=== PATIENT | female | born 1965 | race Caucasian/White ===

== ENCOUNTER 2016-11-05 20:01 | Inpatient (IN) | payer BC ==
--- NOTE | ~2016-11-05 | OP ---
Record Of Operation [facility] [address] [place]. [address] NAME: MARIA G NATION : 61 STATUS : ADM IN [facility]#: [id number] AGE: 51 ADM/REG DATE : 11/05/16 MR#: [id number] REPORT SERV DATE: 11/09/16 DICTATED BY: ANY COOPER III DATE: 11/08/16 REPORT STATUS : Draft TRANSCRIBED BY: MODL DATE: 11/08/16 DATE OF PROCEDURE: 11/08/2016 PREOPERATIVE DIAGNOSIS: Severe small bowel obstruction, chronic, refractory to nonoperative management, possibly secondary to radiation enteritis versus recurrent gynecologic malignancy. 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 PROCEDURE: Laparotomy, lysis of adhesions, small bowel resection with primary anastomosis. SURGEON: Any Cooper M.D. ANESTHESIA: General with intubation. COMPLICATIONS: None. ESTIMATED BLOOD LOSS: 10 mL. SPECIMENS: Distal ilium. DRAINS: [place] in subcutaneous tissue. LAP AND SPONGE COUNT: Correct x3. BRIEF HISTORY: This 51-year-old female with a history of progressive endometrial cancer, status post laparotomy with previous debulking of her malignancy and retroperitoneal lymphadenectomy, as well as pelvic radiation, presented with a small bowel obstruction. The patient has had nausea and vomiting, and symptoms are ongoing for approximately three months, associated with profound weight loss. Her workup showed evidence for small bowel obstruction. She was refractory to nonoperative management including NG suction and bowel rest. It was felt that laparotomy with possible bowel resection was indicated. This procedure, the risks, benefits, and alternatives, including but not limited to the risk for bleeding, infection, enterotomy, injury to any abdominal structure, recurrence of the obstruction, ileus, incisional hernia, dehiscence, anastomotic leak, resulting in peritonitis, sepsis, and , and unforeseen complications including deep venous thrombosis, pulmonary embolus, myocardial infarction, stroke, pneumonia, and , were fully and completely explained to the patient and family at length on several occasions prior to surgery. The fact that this was a major operation with risk for major morbidity and mortality was explained. The marked increased risk for complications secondary to her severe malnutrition, and secondary to her previous radiation therapy, which would increase the risk for wound complications and anastomotic leak greatly was explained. I explained that I was very concerned that this was secondary to radiation enteritis, therefore, the complications with bowel resection would be markedly increased in terms of anastomotic leak. This was all explained to the patient and her family. Their questions were answered. They understood the risks and agreed to surgery as planned. Record Of Operation [facility] [address] [facility] [place] [address] NAME: MARIA G NATION : 61 STATUS : ADM IN PAT#: [id number] AGE: 51 ADM/REG DATE : 11/05/16 MR#: [id number] REPORT SERV DATE: 11/09/16 DICTATED BY: ANY COOPER III DATE: 11/08/16 REPORT STATUS : Draft TRANSCRIBED BY: MODShannan DATE: 11/08/16 FINDINGS: The patient had evidence for severe radiation enteritis of the distal ileum. The small bowel was markedly thickened, edematous with an exudate and gnarled in a mass consistent with severe radiation enteritis. The proximal small bowel appeared to be less involved and we were able to salvage enough small bowel such that we felt the patient's nutritional status would be adequate. DESCRIPTION OF PROCEDURE: After being properly identified and after discussing the risks of surgery with the patient and family again in the preoperative area, she was taken to the operating room and placed in the supine position on the operating room table. General anesthesia was administered and she was intubated without difficulty. A Sutherland catheter was inserted. The abdomen was prepped and draped sterilely in the usual fashion. After an appropriate "time-out" per JCAHO standards, a midline incision was made beginning several centimeters above the umbilicus down to the pubis. The abdominal wall was markedly thickened and woody in nature consistent with a radiation damage. The incision was continued through the fascia. Hemostasis was controlled with cautery. The abdominal cavity was carefully entered. The abdomen was explored. The tfi-jc-qtqvieqe small bowel was massively dilated secondary to obstruction. There was a large amount of clear ascites in the abdominal cavity. The distal small bowel was as above. It was gnarled upon itself, fibrotic, extremely pale, thickened, and edematous, all consistent with severe radiation enteritis. There was no evidence for carcinomatosis or peritoneal implants or recurrence of her malignancy. Even the proximal small bowel appeared to be somewhat pale and involved, but not as diseased as the distal small bowel. We selected the small bowel which was clearly nonviable and which was clearly the point of obstruction. The small bowel was again thickened, edematous, and gnarled upon itself. The small bowel proximal to this was massively dilated. We selected a point for division of the small bowel proximally, at the proximal most point of severe involvement. A FARRAH stapler was used to divide the bowel at this point. We then selected a point distally to divide the bowel, distal to the most severely diseased bowel, and a FARRAH stapler was used to divide the bowel at this point. This division was about 6 to 8 cm proximal to the ileocecal valve. The mesentery to the involved portion of small bowel was then divided using Harmonic scalpel. This section of small bowel, several feet length, was removed and sent for permanent pathology. We then performed a olji-hw-kgkj anastomosis between the divided proximal and distal small bowel. This was performed by aligning the antimesenteric border of the small bowel with interrupted 3-0 silk sutures. A small opening was then made in the antimesenteric border of the small bowel proximally and distally and a FARRAH stapler placed through this and fired. A TA-60 stapler was used to close the staple defect. This staple line was oversewn with interrupted 3-0 silk sutures. The "crotch" of the anastomosis was secured with 3-0 silk sutures. Upon completion of this, the anastomosis was widely patent to palpation. It was not twisted or kinked in any way. It was not under any tension. The mesenteric defect was closed with a running 3-0 silk suture. Evicel glue was placed over the anastomosis to help prevent leakage. Omentum was then placed over this in a Talat patch-type fashion. The abdominal cavity was irrigated copiously with saline and hemostasis was assured. The fascia was then closed with a running looped #1 PDS suture. The subcutaneous tissue was closed Record Of Operation [address] [place]. [address] NAME: MARIA G NATION : 61 STATUS : ADM IN [facility]#: [id number] AGE: 51 ADM/REG DATE : 11/05/16 MR#: [id number] REPORT SERV DATE: 11/09/16 DICTATED BY: ANY COOPER III DATE: 11/08/16 REPORT STATUS : Draft TRANSCRIBED BY: MAGDALENE DATE: 11/08/16 with a running 3-0 chromic suture over a Karina drain which was brought through the inferior aspect of the incision. The skin was closed with a running subcuticular 4-0 Monocryl stitch. Dressings were applied. Anesthesia was reversed. The patient was taken to the recovery room in stable condition. She tolerated the procedure well. Her family was informed of results of surgery. I explained to the patient's family the findings at surgery and explained that I am concerned about the anastomosis, which is high risk due to the radiation damage and also concerned about the wound and wound healing because of the radiation damage to the abdominal wall. RHJelena/MAGDALENE Any Cooper III, M.D. / [id number] CC: MD Chavez Ludwig DO Munford Yates III, M.D.
--- NOTE | ~2016-11-05 | CN ---
Consultation Report [facility] [address] [place]. [address] NAME: MARIA G NATION : 61 STATUS : ADM IN [facility]#: [id number] AGE: 51 ADM/REG DATE : 11/05/16 MR#: [id number] REPORT SERV DATE: 11/08/16 DICTATED BY: ANY COOPER III DATE: 11/07/16 REPORT STATUS : Draft TRANSCRIBED BY: MODL DATE: 11/07/16 DATE OF CONSULTATION: 11/07/2016 REASON FOR CONSULT: 1. Small bowel obstruction. 2. Recommendation regarding surgical management. HISTORY OF PRESENT ILLNESS: We are asked to see this 51-year-old female in the hospital for the above reasons. The patient was admitted to the hospital emergently on 11/05/2016 with evidence for small bowel obstruction. The patient has a history of recurrent endometrial cancer. She is status post hysterectomy with pelvic and periaortic lymph node dissection in 2014, followed by laparotomy with resection of recurrent perirectal mass in March 2016. She has completed chemotherapy after initial surgery and recently completed pelvic radiation therapy in June of this year. The patient was doing well until August of this year when she developed recurrent episodes of nausea, vomiting, weight loss, and food intolerance. These symptoms have become progressively worse over the last two to three weeks. The patient has had evidence radiographically for small bowel obstruction possibly secondary to radiation enteritis. The patient was admitted emergently five days ago and started on TPN. She states she has not had a bowel movement since Saturday of this week. She complains of abdominal distention. This was associated with a 20-pound weight loss and inability to tolerate any solid or liquid foods. NG tube was placed and a large amount of material over one liter was removed from her stomach. Upper enteroscopy performed 11/05/2016 showed changes consistent with small bowel obstruction as has small bowel series on this admission. Initially 3.2 L of bilious material was removed from her stomach. Her current small bowel series shows small bowel dilatation to five centimeters. Yesterday, NG tube was placed and 1300 mL of fluid was removed from the stomach with 1.5 L of output every 12 hours since then. PAST MEDICAL HISTORY: History of endometrial cancer as above. ALLERGIES: SULFA, . MEDICATIONS: Aspirin, Lipitor, digoxin, Diflucan, folic acid, nystatin, Protonix, prednisone, and Rythmol. PAST SURGICAL HISTORY: Includes the above as well as breast augmentation. SOCIAL HISTORY: The patient is a speech pathologist. She is and lives locally. FAMILY HISTORY: Unremarkable. PHYSICAL EXAMINATION: GENERAL: This is a thin female, in no acute distress. She is alert and oriented x3. HEENT: Unremarkable. NEUROLOGIC: Cranial nerves II through XII are normal. Consultation Report [place] [address] [facility] [address] NAME: MARIA G NATION : 61 STATUS : ADM IN [facility]#: [id number] AGE: 51 ADM/REG DATE : 11/05/16 MR#: [id number] REPORT SERV DATE: 11/08/16 DICTATED BY: ANY COOPER III DATE: 11/07/16 REPORT STATUS : Draft TRANSCRIBED BY: MAGDALENE DATE: 11/07/16 LUNGS: Clear. CARDIAC: Normal. ABDOMEN: Soft, slightly distended, nontender. EXTREMITIES: Normal. LABORATORY DATA: Electrolytes are unremarkable. A small-bowel series and CT scan both showed changes consistent with small bowel obstruction. ASSESSMENT: 1. A 51-year-old female with persistent small bowel obstruction, which has persisted since August of this year, associated weight loss. 2. History of endometrial cancer with radiation therapy and surgical procedures as above. PLAN: I believe the patient has failed nonoperative management after 5 days of NG suction and bowel rest. I feel that laparotomy with possible bowel resection is indicated. The patient wishes to proceed with surgery tomorrow and wants the schedule to be done for her. This will be laparotomy with possible lysis of adhesions, possible bowel resection. This procedure, the risks, benefits, and alternatives, including not limited to the risk for bleeding, infection, enterotomy, injury to abdominal structure, postop small bowel obstruction, ileus, recurrent small bowel obstruction, anastomotic leak resulting in peritonitis, sepsis, and , and unforeseen complications including deep venous thrombosis, pulmonary embolus, myocardial infarction, stroke, pneumonia, and have been fully and clearly explained to the patient and family prior to surgery. The fact that this is a major operation with risk for major morbidity and mortality and no guarantee for relief of her symptoms were explained. The expected length of recovery has been explained. The fact that she is at marked increased risk for complications due to her previous radiation therapy with radiation enteritis, complications which could include wound failure, wound dehiscence, and anastomotic leak which could result in have been explained. The patient's questions have been answered. She clearly understands the risks and agrees to the surgery as planned. DARRELLJ/MAGDALENE Any Cooper III, M.D. / [id number] CC: MD Chavez Ludwig,
--- NOTE | ~2016-11-05 | DS ---
Discharge Summary [facility] [address] [place]. [address] NAME: MARIA G NATION : 61 STATUS : DIS IN PAT#: [id number] AGE: 51 ADM/REG DATE : 11/05/16 MR#: [id number] REPORT SERV DATE: 11/24/16 DICTATED BY: ANY COOPER III DATE: 11/23/16 REPORT STATUS : Draft TRANSCRIBED BY: MAGDALENE DATE: 11/23/16 Data Collection from hospitalization DISCHARGE DIAGNOSES: 1. Severe radiation enteritis. 2. Near complete bowel obstruction. 3. History of endometrial cancer. CONSULTATIONS: Maxi Catalan MD and Slim Velez M.D. PROCEDURES PERFORMED: 1. Small bowel followthrough, 11/06/2016. 2. Laparotomy, lysis of adhesions, small bowel resection with primary anastomosis, 11/08/2016. PATHOLOGY: Partial small bowel resection, adhesed small bowel segment with areas of mucosal ischemia, margins viable 6 lymph nodes free of tumor. MEDICATIONS: Zofran 8 mg every 8 hours as needed; Bentyl 10 mg three times daily as needed; Questran Light 4 g twice daily as directed; AZO urinary pain relief 190 mg three times daily; Pepcid 20 mg twice daily; multivitamin with minerals one every morning; calcium, magnesium, vitamin one every morning; vitamin C 500 mg every morning; probiotic 1 every morning; Senokot two tablets twice daily as needed; Systane one drop each eye twice daily as needed; Levaquin 750 mg daily; Percocet 7.5/325 every 8 hours as needed. TPN infusion as directed. CONDITION AT DISCHARGE: Upon discharge, she did appear to be doing well and had no complaints. DISPOSITION: She was discharged home to continue a regular diet with activity as discussed. She was to continue TPN at home as prior to admission. She was to follow up with myself in two weeks. Follow up with Dr. Maxi Catalan as directed. [employer] [facility] was in place upon discharge. HOSPITAL COURSE: This 51-year-old female was admitted to the hospital emergently on 11/05/2016 with evidence for small bowel obstruction. She had a history of recurrent endometrial cancer. She was status post hysterectomy with pelvic and periaortic lymph node dissection in 2014 followed by laparotomy with resection of recurrent perirectal mass in March 2016. She completed chemotherapy after initial surgery and recently completed pelvic radiation therapy in June of this year. She was doing well until August of this year when she developed recurrent episodes of nausea, vomiting, weight loss, and food intolerance. These symptoms have become progressively worse over the last two to three weeks. She had evidence radiographically for small bowel obstruction possibly secondary to radiation enteritis. She was admitted emergently five days prior to admission and started on TPN. She stated that she has not had a bowel movement since Saturday of this week. She complained of abdominal distention. This was associated with a 20-pound weight loss and inability to tolerate any solid or liquid food. NG tube was placed and a large amount of material over 1 L was removed from her stomach. Upper endoscopy was performed on 11/05/2016 Discharge Summary [address] [place]. [address] NAME: MARIA G NATION : 61 STATUS : DIS IN PAT#: [id number] AGE: 51 ADM/REG DATE : 11/05/16 MR#: [id number] REPORT SERV DATE: 11/24/16 DICTATED BY: ANY COOPER III DATE: 11/23/16 REPORT STATUS : Draft TRANSCRIBED BY: MODShannan DATE: 11/23/16 showing changes consistent with small bowel obstruction, as has small-bowel series on this admission. Initially, 3.2 L of bilious material was removed from her stomach. Her current small bowel series showed small bowel dilatation to 5 cm. She did have an NG tube placed and 1300 mL of fluid was removed from the stomach with a 1.5 L of output every 12 hours since. She was admitted for further evaluation and treatment. Upon admission to the hospital, she had been placed on orders for preoperative patient. She had been placed on a regular diet. She was begun on IV fluids with normal saline at 125 mL/hour. She was begun on Zofran at 8 mg IV every six hours as needed, Phenergan 12.5 mg IV every 8 hours as needed, Reglan 10 mg 30 minutes prior to contrast for the small bowel followthrough, Lovenox 40 mg subcutaneously daily. Following the day of admission, she did undergo the above small bowel followthrough. She was initially admitted by Dr. Maxi Catalan who did tell the patient that she would likely need exploratory surgery given the fact that she continued to lose weight and given the location of possible obstruction that this was unlikely to be related to her prior radiation therapy. She was to continue TPN at that time until she was seen further on 11/07/2016. She did still have the NG tube in place. She was afebrile and her vital signs were stable. Her small bowel followthrough was noted to be consistent with obstruction in the distal jejunum, proximal ilium, and I had seen the patient in consult at that time and took over her care, as it was evident that she would probably need surgery. She was adamant for the NG tube removal and it was discussed with the patient that the NG tube needed to remain in place, as she still had a large amount of output. She did verbalize understanding and was requesting surgical placement of a G tube for decompression versus the NG tube, as she did not want the NG tube to remain in place for response to nonoperative management. She did however agree to leave the NG tube in place until further recommendations could be discussed with the patient. Surgery had been discussed with the patient and she was agreeable to proceed. On 11/08/2016, she had been taken to the operating room where she did undergo the above procedure. She did tolerate this well and was taken to the recovery room. On postop day #1, she had complaints of incisional pain. She was afebrile and her vital signs were stable. Her Sutherland catheter was removed. She was still on TPN. On postop day #1, she had also been evaluated by Physical Therapy. On postop day #2, she was noted to be feeling much better. She was alert and comfortable. She had remained afebrile and her vital signs were stable. She was still n.p.o. On postop day #3, she had no complaints and the NG tube was removed. She had been placed on clear liquids. She was afebrile and her vital signs had remained stable. She did state that she had felt better and her WBCs were better. She had also been ambulating. On postop day #4, she was noted to be passing loose stool. She was afebrile and her vital signs had remained stable. She was still on clear liquids and was still continued on TPN. She had been checked for Clostridium difficile which was noted to be positive and she had been placed on the appropriate medication. On 11/13/2016, her diarrhea was noted to be improving and she was noted to be feeling better. Her dysuria had resolved with the addition of Pyridium. She continued to tolerate a full liquid diet. She was afebrile and her vital signs had remained stable. She had also been seen by Dr. Jasper Velez. He also agreed with continuation of TPN. He had also recommended checking her stool. On 11/15/2016, she continued to have loose stools and was tolerating a full liquid diet. She was felt to be slowly improving and her diet was being advanced. She did still have minimal oral intake and was to continue TPN until her oral intake did improve. She did undergo a urine culture which was positive for gram-positive cocci and she had been placed on vancomycin. On 11/16/2016, she did state that she had felt better still with some loose stools. She was afebrile and her urine Discharge Summary [address] [address] NAME: MARIA G NATION : 61 STATUS : DIS IN PAT#: [id number] AGE: 51 ADM/REG DATE : 11/05/16 MR#: [id number] REPORT SERV DATE: 11/24/16 DICTATED BY: ANY COOPER III DATE: 11/23/16 REPORT STATUS : Draft TRANSCRIBED BY: MAGDALENE DATE: 11/23/16 culture revealed a growth of ( ). She was continued on antibiotics. She did remain in stable condition throughout the next few days and her pain was under good control. She was now having formed stools and had been ambulating and voiding well, as she continued to slowly improve. Discharge planning was begun and she was then discharged on 11/19/2016 with the above instructions. Information collected by: Bouchra CastilloIMauricioT. I submit the above information as my discharge summary. ROSANNA/MAGDALENE Any Cooper III, M.D. / [id number] CC: Any Edgar CooperJosh yee III, DO Todd Boren, MD Munford Yates III, M.D.
--- NOTE | ~2016-11-05 | DS ---
Discharge Summary [place] [id number] [facility] [place]. [address] NAME: MARIA G NATION : 61 STATUS : DIS IN PAT#: [id number] AGE: 51 ADM/REG DATE : 11/05/16 MR#: [id number] REPORT SERV DATE: 11/29/16 DICTATED BY: ANY FERNANDEZ III DATE: 11/29/16 REPORT STATUS : Draft TRANSCRIBED BY: MODL DATE: 11/29/16 ADMISSION DATE: 11/05/2016 DISCHARGE DATE: 11/19/2016 ADDENDUM: It should be noted in correction to the previous discharge summary, the patient was not Clostridium difficile positive. DICTATED BY: Josh Santos III/MAGDALENE Any Fernandez III, M.D. / [id number] CC: Josh Santos III, DO
--- NOTE | ~2016-11-05 | HP ---
History And Physical [place] [address] [facility] [place]. [address] NAME: MARIA G NATION : 61 STATUS : ADM IN PAT#: [id number] AGE: 51 ADM/REG DATE : 11/05/16 MR#: [id number] REPORT SERV DATE: 11/06/16 DICTATED BY: MAXI CATAALN DATE: 11/06/16 REPORT STATUS : Draft TRANSCRIBED BY: MODL DATE: 11/06/16 DATE OF ADMISSION: 11/05/2016 REASON FOR ADMISSION: Nausea, unintended weight loss, and possible small bowel obstruction. HISTORY OF PRESENT ILLNESS: Ms Nation is a delightful 51-year-old female, who had a history of a hysterectomy with an incidental finding of endometrioid adenocarcinoma. She was then seen by me, and she underwent a pelvic and periaortic lymph node dissection which all the lymph nodes were negative. She then developed a recurrence of her endometrial cancer in her pararectal space which required an exploratory laparotomy with cytoreductive procedure, she then received whole pelvic radiation following that procedure. After her lymph node dissection, she received vaginal radiation therapy and systemic chemotherapy. She did not receive any systemic chemotherapy following her whole pelvic radiation after her recurrence. Following the treatment for the recurrence, she has had persistent nausea described as being able to eat for three to four days, and then throwing up, which she described as all of the food she is eating in the last three to four days. 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 She has a persistent small lymphocele in her pelvis. On CT scan previously, she was sent to Gastroenterology with Dr. Velez, who ordered a CT scan, which revealed a possible proximal small bowel obstruction with radiation enteritis. No evidence of recurrent or persistent endometrial cancer. An upper endoscopy was performed yesterday by Dr. Velez, which revealed likely proximal small bowel obstruction. There was approximately 4 L of fluid removed from her stomach, which she feels much better after that procedure. Today, she overall feels well. She has no spontaneous nausea, and she is very anxious about her diagnosis, and the prospect of the need for further surgery. PAST MEDICAL HISTORY: Negative. PAST SURGICAL HISTORY: She has had hysterectomy with pelvic and periaortic lymph node dissection and a secondary cytoreductive procedure with removal of the pararectal mass. SOCIAL HISTORY: Negative for tobacco, alcohol, or illicit drug use. FAMILY HISTORY: Negative for GI, , or breast malignancies. HOME MEDICATIONS: See chart. PHYSICAL EXAMINATION: VITAL SIGNS: Her temperature is 98.3, her pulse is 89, and blood pressure is 95/53. She is 66 inches tall, weighs 104 pounds. Her BMI is 16.8. HEENT: Normocephalic, atraumatic. HEART: Regular rate and rhythm. LUNGS: Clear to auscultation bilaterally. ABDOMEN: Soft, nontender, and nondistended. EXTREMITIES: No clubbing, cyanosis, or edema. PELVIC: Deferred. History And Physical [address] [place]. [address] NAME: MARIA G NATION : 61 STATUS : ADM IN PAT#: [id number] AGE: 51 ADM/REG DATE : 11/05/16 MR#: [id number] REPORT SERV DATE: 11/06/16 DICTATED BY: MAXI CATALAN DATE: 11/06/16 REPORT STATUS : Draft TRANSCRIBED BY: MAGDALENE DATE: 11/06/16 REVIEW OF SYSTEMS: Significant for persistent nausea. No current emesis and decreased appetite and weight loss. She has no chest pain. No shortness of breath. No vaginal bleeding. No leg swelling or leg pain. LABORATORY EVALUATION: Her white blood cell count is 3.8, her hemoglobin is 12.8, and platelets of 266. Her pre-albumin is 16.8. Her potassium on admission was 2.8, now it is 3.2 after replacement. She has been put on TPN by Dr. Velez for the past four nights. ASSESSMENT AND PLAN: Going forward, I will check a small bowel follow-through to definitively determine the site of the obstruction if this is a mechanical obstruction, or whether it is complete or partial to determine whether surgical intervention is required. I did tell the patient that it is likely that she will need an exploratory surgery, given the fact that she continues to lose weight, and given the location of the possible obstruction, this is unlikely to be related to her prior radiation therapy. I will talk to the patient in more detail about any plans for surgery after the results of the small bowel follow through were performed. We will continue her TPN at the moment. ALICIA/MODL Maxi Catalan MD / [id number] CC: MD Chavez Ludwig DO
[~2016-11-05 20:01] MED LIST: BENTYL10 PO; PEP20 PO; ZOFRAN8 PO
[2016-11-05] MEDS ORDERED: MULTIVIT/MIN PO (22:27)
[2016-11-05] MEDS ORDERED: [UNRECOGNIZED DRUG - OTHER] PO (22:28)
[2016-11-05] MEDS ORDERED: VIT PO (22:28)
[2016-11-05] MEDS ORDERED: MAG PO (22:28)
[2016-11-05] MEDS ORDERED: VITC500 PO (22:28)
[2016-11-05] MEDS ORDERED: CALC PO (22:28)
[2016-11-05] MEDS ORDERED: SENTAB PO (22:29)
[2016-11-05 23:02] LABS: BASOPHILS 0.7 %; BASOPHILS ABSOLUTE 0.03 10/3/uL (0.0-0.16); EOSINOPHILS 2.4 %; IMMATURE GRANULOCYTES 0.2 %; IMMATURE GRANULOCYTES ABSOLUTE 0.01 10/3/uL (0.0-0.11); LYMPHOCYTES 16.2 %; LYMPHOCYTES ABSOLUTE 0.67 10/3/uL (0.67-4.30); MEAN CORPUS HGB CONC 33.6 g/dL (32.0-36.0); MEAN CORPUSCULAR HEMOGLOB 28.5 pg (26.0-34.0); MEAN CORPUSCULAR VOLUME 84.9 fL (80-100); MEAN PLATELET VOLUME 9.9 fL (9.2-13.0); MONOCYTES 8.5 %; MONOCYTES ABSOLUTE 0.35 10/3/uL (0.21-1.20); NEUTROPHILS ABSOLUTE 2.98 10/3/uL (2.02-8.40); PLATELET COUNT 262 10/3/uL (150-400); RBC DISTRIBUTION WIDTH 13.2 % (12.0-16.0); RED CELL COUNT 4.56 10/6/uL (4.0-5.6); WHITE BLOOD CELLS 4.1 10/3/uL (4.5-10.5)
[2016-11-05 23:04] LABS: HEMATOCRIT 38.7 % (36.0-48.0); MANUAL DIFF NO %
[2016-11-05 23:12] LABS: BUN (BLOOD UREA NITROGEN) 20 MG/DL (6-23); CHLORIDE, SERUM 100 MMOL/L (96-112); CO2 (CARBON DIOXIDE) 34 MMOL/L (24-34); CREATININE 0.58 MG/DL (0.55-1.02); GFR AFRICAN AMERICAN 122 ML/MIN (>=60); GFR NON AFRICAN AMERICAN 105 ML/MIN (>=60); GLUCOSE, SERUM 94 MG/DL (60-99); POTASSIUM, SERUM 2.8 MMOL/L (3.5-5.3); SODIUM, SERUM 141 MMOL/L (135-148)
[2016-11-06 07:30] LABS: BASOPHILS 0.5 %; BASOPHILS ABSOLUTE 0.02 10/3/uL (0.0-0.16); EOSINOPHILS 4.5 %; EOSINOPHILS ABSOLUTE 0.17 10/3/uL (0.0-0.53); HEMATOCRIT 38.7 % (36.0-48.0); HEMOGLOBIN 12.8 g/dL (12.0-16.0); IMMATURE GRANULOCYTES 0.5 %; IMMATURE GRANULOCYTES ABSOLUTE 0.02 10/3/uL (0.0-0.11); LYMPHOCYTES 13.2 %; MEAN CORPUS HGB CONC 33.1 g/dL (32.0-36.0); MEAN CORPUSCULAR HEMOGLOB 28.4 pg (26.0-34.0); MEAN PLATELET VOLUME 10.6 fL (9.2-13.0); MONOCYTES 13.5 %; MONOCYTES ABSOLUTE 0.51 10/3/uL (0.21-1.20); NEUTROPHILS 67.8 %; NEUTROPHILS ABSOLUTE 2.56 10/3/uL (2.02-8.40); PLATELET COUNT 266 10/3/uL (150-400); RBC DISTRIBUTION WIDTH 13.1 % (12.0-16.0); WHITE BLOOD CELLS 3.8 10/3/uL (4.5-10.5)
[2016-11-06 07:31] LABS: MANUAL DIFF NO %
[2016-11-06 07:43] LABS: BUN (BLOOD UREA NITROGEN) 20 MG/DL (6-23); CALCIUM, SERUM 9.3 MG/DL (8.5-10.4); CHLORIDE, SERUM 102 MMOL/L (96-112); CO2 (CARBON DIOXIDE) 36 MMOL/L (24-34); GFR AFRICAN AMERICAN 121 ML/MIN (>=60); GFR NON AFRICAN AMERICAN 104 ML/MIN (>=60); GLUCOSE, SERUM 93 MG/DL (60-99); POTASSIUM, SERUM 3.2 MMOL/L (3.5-5.3); SODIUM, SERUM 142 MMOL/L (135-148)
[2016-11-06 08:00] LABS: PREALBUMIN 16.8 MG/DL (17.0-43.0)
[2016-11-06 10:46] LABS: PHOSPHORUS, SERUM 3.6 MG/DL (2.5-4.5)
[2016-11-06 13:06] LABS: WBC (NOT ORDERED) (RFLEX) 0 (0-5)
[2016-11-06 13:42] LABS: ASCORBIC ACID (UR NOT ORDER) 40 (NEG); BILIRUBIN, URINE NEGATIVE (NEG); KETONE, URINE TRACE MG/DL (NEG); LEUKOCYTE ESTERASE(NOT OR NEG (NEG)
[2016-11-07 09:35] LABS: CALCIUM, SERUM 9.3 MG/DL (8.5-10.4); CHLORIDE, SERUM 102 MMOL/L (96-112); CO2 (CARBON DIOXIDE) 34 MMOL/L (24-34); CREATININE 0.53 MG/DL (0.55-1.02); GFR AFRICAN AMERICAN 126 ML/MIN (>=60); GFR NON AFRICAN AMERICAN 108 ML/MIN (>=60); POTASSIUM, SERUM 3.6 MMOL/L (3.5-5.3); SGOT(AST) 29 U/L (5-40); SGPT(ALT) 42 U/L (5-65); SODIUM, SERUM 141 MMOL/L (135-148); TOTAL BILIRUBIN 0.2 MG/DL (0-1.2); TOTAL PROTEIN 6.7 G/DL (6.0-8.5); TRIGLYCERIDE 69 MG/DL (< 150)
[2016-11-07 09:37] LABS: ALBUMIN 3.3 G/DL (3.5-5.0); ALKALINE PHOSPHATASE 72 U/L (45-117); BUN (BLOOD UREA NITROGEN) 25 MG/DL (6-23); GLOBULIN 3.4 G/DL (2.5-4.1); GLUCOSE, SERUM 133 MG/DL (60-99); PHOSPHORUS, SERUM 2.4 MG/DL (2.5-4.5)
[2016-11-08 10:25] LABS: BASOPHILS 0.2 %; BASOPHILS ABSOLUTE 0.01 10/3/uL (0.0-0.16); EOSINOPHILS 1.8 %; EOSINOPHILS ABSOLUTE 0.08 10/3/uL (0.0-0.53); HEMATOCRIT 38.6 % (36.0-48.0); HEMOGLOBIN 12.8 g/dL (12.0-16.0); IMMATURE GRANULOCYTES 0.4 %; IMMATURE GRANULOCYTES ABSOLUTE 0.02 10/3/uL (0.0-0.11); LYMPHOCYTES 12.1 %; LYMPHOCYTES ABSOLUTE 0.55 10/3/uL (0.67-4.30); MEAN CORPUS HGB CONC 33.2 g/dL (32.0-36.0); MEAN CORPUSCULAR HEMOGLOB 28.4 pg (26.0-34.0); MEAN CORPUSCULAR VOLUME 85.6 fL (80-100); MONOCYTES 5.5 %; MONOCYTES ABSOLUTE 0.25 10/3/uL (0.21-1.20); NEUTROPHILS ABSOLUTE 3.62 10/3/uL (2.02-8.40); PLATELET COUNT 229 10/3/uL (150-400); RBC DISTRIBUTION WIDTH 13.3 % (12.0-16.0); RED CELL COUNT 4.51 10/6/uL (4.0-5.6); WHITE BLOOD CELLS 4.5 10/3/uL (4.5-10.5)
[2016-11-08 10:26] LABS: MANUAL DIFF NO %
[2016-11-08 10:36] LABS: INTERNATIONAL NORMAL RATI 1.2 UNITS (-); PARTIAL THROMBO TIME 31.1 SEC (22.5-37.2); PROTIME (NOT ORD) 14.6 SEC (12.0-14.5)
[2016-11-08 12:07] LABS: CHLORIDE, SERUM 110 MMOL/L (96-112); CO2 (CARBON DIOXIDE) 34 MMOL/L (24-34); CREATININE 0.52 MG/DL (0.55-1.02); GFR AFRICAN AMERICAN 126 ML/MIN (>=60); GFR NON AFRICAN AMERICAN 109 ML/MIN (>=60); GLUCOSE, SERUM 113 MG/DL (60-99); PHOSPHORUS, SERUM 2.5 MG/DL (2.5-4.5); POTASSIUM, SERUM 4.2 MMOL/L (3.5-5.3); SODIUM, SERUM 146 MMOL/L (135-148)
[2016-11-08 12:08] LABS: BUN (BLOOD UREA NITROGEN) 32 MG/DL (6-23)
[2016-11-09 10:30] LABS: BASOPHILS 0.2 %; BASOPHILS ABSOLUTE 0.01 10/3/uL (0.0-0.16); EOSINOPHILS 0 %; HEMATOCRIT 39.8 % (36.0-48.0); HEMOGLOBIN 13.3 g/dL (12.0-16.0); IMMATURE GRANULOCYTES 0.3 %; IMMATURE GRANULOCYTES ABSOLUTE 0.02 10/3/uL (0.0-0.11); LYMPHOCYTES 3.9 %; LYMPHOCYTES ABSOLUTE 0.26 10/3/uL (0.67-4.30); MEAN CORPUS HGB CONC 33.4 g/dL (32.0-36.0); MEAN CORPUSCULAR HEMOGLOB 28.1 pg (26.0-34.0); MEAN CORPUSCULAR VOLUME 84.1 fL (80-100); MEAN PLATELET VOLUME 10.3 fL (9.2-13.0); MONOCYTES 7.9 %; MONOCYTES ABSOLUTE 0.52 10/3/uL (0.21-1.20); NEUTROPHILS 87.7 %; NEUTROPHILS ABSOLUTE 5.79 10/3/uL (2.02-8.40); PLATELET COUNT 225 10/3/uL (150-400); RBC DISTRIBUTION WIDTH 13.2 % (12.0-16.0); RED CELL COUNT 4.73 10/6/uL (4.0-5.6)
[2016-11-09 10:33] LABS: MANUAL DIFF NO %; WHITE BLOOD CELLS 6.6 10/3/uL (4.5-10.5)
[2016-11-09 10:45] LABS: CALCIUM, SERUM 8.5 MG/DL (8.5-10.4); CHLORIDE, SERUM 107 MMOL/L (96-112); CO2 (CARBON DIOXIDE) 30 MMOL/L (24-34); CREATININE 0.38 MG/DL (0.55-1.02); GFR AFRICAN AMERICAN 140 ML/MIN (>=60); GFR NON AFRICAN AMERICAN 121 ML/MIN (>=60); POTASSIUM, SERUM 3.6 MMOL/L (3.5-5.3); SODIUM, SERUM 143 MMOL/L (135-148)
[2016-11-09 10:49] LABS: BUN (BLOOD UREA NITROGEN) 21 MG/DL (6-23); GLUCOSE, SERUM 143 MG/DL (60-99)
[2016-11-09 11:56] LABS: PHOSPHORUS, SERUM 2.4 MG/DL (2.5-4.5)
[2016-11-10 11:28] LABS: BASOPHILS 0.2 %; BASOPHILS ABSOLUTE 0.01 10/3/uL (0.0-0.16); EOSINOPHILS 4.1 %; EOSINOPHILS ABSOLUTE 0.19 10/3/uL (0.0-0.53); HEMOGLOBIN 11.4 g/dL (12.0-16.0); IMMATURE GRANULOCYTES 0.2 %; IMMATURE GRANULOCYTES ABSOLUTE 0.01 10/3/uL (0.0-0.11); LYMPHOCYTES 14.7 %; LYMPHOCYTES ABSOLUTE 0.68 10/3/uL (0.67-4.30); MEAN CORPUS HGB CONC 33.7 g/dL (32.0-36.0); MEAN CORPUSCULAR HEMOGLOB 28.6 pg (26.0-34.0); MEAN CORPUSCULAR VOLUME 84.9 fL (80-100); MEAN PLATELET VOLUME 10.2 fL (9.2-13.0); MONOCYTES 8.2 %; MONOCYTES ABSOLUTE 0.38 10/3/uL (0.21-1.20); NEUTROPHILS 72.6 %; NEUTROPHILS ABSOLUTE 3.36 10/3/uL (2.02-8.40); PLATELET COUNT 176 10/3/uL (150-400); RBC DISTRIBUTION WIDTH 13.5 % (12.0-16.0); RED CELL COUNT 3.98 10/6/uL (4.0-5.6); WHITE BLOOD CELLS 4.6 10/3/uL (4.5-10.5)
[2016-11-10 11:29] LABS: HEMATOCRIT 33.8 % (36.0-48.0); MANUAL DIFF NO %
[2016-11-10 11:47] LABS: CALCIUM, SERUM 8.8 MG/DL (8.5-10.4); CHLORIDE, SERUM 111 MMOL/L (96-112); CO2 (CARBON DIOXIDE) 26 MMOL/L (24-34); CREATININE 0.34 MG/DL (0.55-1.02); GFR AFRICAN AMERICAN 145 ML/MIN (>=60); GFR NON AFRICAN AMERICAN 125 ML/MIN (>=60); GLUCOSE, SERUM 118 MG/DL (60-99); PREALBUMIN 8.5 MG/DL (17.0-43.0); SODIUM, SERUM 142 MMOL/L (135-148); TRIGLYCERIDE 53 MG/DL (< 150)
[2016-11-10 11:48] LABS: BUN (BLOOD UREA NITROGEN) 25 MG/DL (6-23); POTASSIUM, SERUM 4.5 MMOL/L (3.5-5.3)
[2016-11-11 10:54] LABS: BASOPHILS 0.2 %; BASOPHILS ABSOLUTE 0.01 10/3/uL (0.0-0.16); EOSINOPHILS 4.3 %; HEMATOCRIT 34.7 % (36.0-48.0); HEMOGLOBIN 11.8 g/dL (12.0-16.0); IMMATURE GRANULOCYTES 0.4 %; IMMATURE GRANULOCYTES ABSOLUTE 0.02 10/3/uL (0.0-0.11); LYMPHOCYTES ABSOLUTE 0.37 10/3/uL (0.67-4.30); MEAN CORPUSCULAR HEMOGLOB 28.4 pg (26.0-34.0); MEAN CORPUSCULAR VOLUME 83.4 fL (80-100); MEAN PLATELET VOLUME 10.2 fL (9.2-13.0); MONOCYTES 12.6 %; MONOCYTES ABSOLUTE 0.58 10/3/uL (0.21-1.20); NEUTROPHILS 74.5 %; NEUTROPHILS ABSOLUTE 3.42 10/3/uL (2.02-8.40); RBC DISTRIBUTION WIDTH 13.5 % (12.0-16.0); RED CELL COUNT 4.16 10/6/uL (4.0-5.6); WHITE BLOOD CELLS 4.6 10/3/uL (4.5-10.5)
[2016-11-11 10:55] LABS: MANUAL DIFF NO %; PLATELET COUNT 235 10/3/uL (150-400)
[2016-11-11 11:06] LABS: BUN (BLOOD UREA NITROGEN) 24 MG/DL (6-23); CALCIUM, SERUM 8.9 MG/DL (8.5-10.4); CHLORIDE, SERUM 109 MMOL/L (96-112); CO2 (CARBON DIOXIDE) 28 MMOL/L (24-34); CREATININE 0.34 MG/DL (0.55-1.02); GFR AFRICAN AMERICAN 145 ML/MIN (>=60); GFR NON AFRICAN AMERICAN 125 ML/MIN (>=60); GLUCOSE, SERUM 106 MG/DL (60-99); PHOSPHORUS, SERUM 2.8 MG/DL (2.5-4.5); POTASSIUM, SERUM 4.2 MMOL/L (3.5-5.3); SODIUM, SERUM 141 MMOL/L (135-148)
[2016-11-12 02:17] LABS: ASCORBIC ACID (UR NOT ORDER) NEG (NEG); BILIRUBIN, URINE NEGATIVE (NEG); KETONE, URINE NEGATIVE (NEG); LEUKOCYTE ESTERASE(NOT OR NEG (NEG); WBC (NOT ORDERED) (RFLEX) 2 (0-5)
[2016-11-12 10:06] LABS: BASOPHILS 0.2 %; BASOPHILS ABSOLUTE 0.01 10/3/uL (0.0-0.16); EOSINOPHILS 3.5 %; EOSINOPHILS ABSOLUTE 0.21 10/3/uL (0.0-0.53); HEMATOCRIT 34.8 % (36.0-48.0); HEMOGLOBIN 11.9 g/dL (12.0-16.0); IMMATURE GRANULOCYTES 0.3 %; IMMATURE GRANULOCYTES ABSOLUTE 0.02 10/3/uL (0.0-0.11); LYMPHOCYTES 6.7 %; MANUAL DIFF NO %; MEAN CORPUS HGB CONC 34.2 g/dL (32.0-36.0); MEAN CORPUSCULAR HEMOGLOB 28.5 pg (26.0-34.0); MEAN CORPUSCULAR VOLUME 83.5 fL (80-100); MEAN PLATELET VOLUME 10.1 fL (9.2-13.0); MONOCYTES 8.3 %; NEUTROPHILS ABSOLUTE 4.85 10/3/uL (2.02-8.40); PLATELET COUNT 251 10/3/uL (150-400); RBC DISTRIBUTION WIDTH 13.5 % (12.0-16.0); RED CELL COUNT 4.17 10/6/uL (4.0-5.6)
[2016-11-12 10:18] LABS: BUN (BLOOD UREA NITROGEN) 19 MG/DL (6-23); CALCIUM, SERUM 8.7 MG/DL (8.5-10.4); CHLORIDE, SERUM 106 MMOL/L (96-112); CO2 (CARBON DIOXIDE) 26 MMOL/L (24-34); CREATININE 0.35 MG/DL (0.55-1.02); GFR AFRICAN AMERICAN 144 ML/MIN (>=60); GFR NON AFRICAN AMERICAN 124 ML/MIN (>=60); GLUCOSE, SERUM 120 MG/DL (60-99); PHOSPHORUS, SERUM 2.8 MG/DL (2.5-4.5); POTASSIUM, SERUM 3.9 MMOL/L (3.5-5.3); SODIUM, SERUM 139 MMOL/L (135-148)
[2016-11-13 00:39] LABS: ASCORBIC ACID (UR NOT ORDER) 40 (NEG); BILIRUBIN, URINE NEGATIVE (NEG); KETONE, URINE NEGATIVE (NEG); LEUKOCYTE ESTERASE(NOT OR NEG (NEG); WBC (NOT ORDERED) (RFLEX) > 182 (0-5)
[2016-11-13 11:33] LABS: BASOPHILS 0.2 %; BASOPHILS ABSOLUTE 0.01 10/3/uL (0.0-0.16); EOSINOPHILS 4.4 %; EOSINOPHILS ABSOLUTE 0.21 10/3/uL (0.0-0.53); HEMATOCRIT 33.5 % (36.0-48.0); HEMOGLOBIN 11.3 g/dL (12.0-16.0); IMMATURE GRANULOCYTES 0.8 %; IMMATURE GRANULOCYTES ABSOLUTE 0.04 10/3/uL (0.0-0.11); LYMPHOCYTES 10.2 %; LYMPHOCYTES ABSOLUTE 0.49 10/3/uL (0.67-4.30); MEAN CORPUS HGB CONC 33.7 g/dL (32.0-36.0); MEAN CORPUSCULAR HEMOGLOB 28.3 pg (26.0-34.0); MEAN CORPUSCULAR VOLUME 83.8 fL (80-100); MEAN PLATELET VOLUME 10.9 fL (9.2-13.0); MONOCYTES 8.5 %; MONOCYTES ABSOLUTE 0.41 10/3/uL (0.21-1.20); NEUTROPHILS 75.9 %; NEUTROPHILS ABSOLUTE 3.66 10/3/uL (2.02-8.40); PLATELET COUNT 245 10/3/uL (150-400); RBC DISTRIBUTION WIDTH 13.4 % (12.0-16.0); WHITE BLOOD CELLS 4.8 10/3/uL (4.5-10.5)
[2016-11-13 11:34] LABS: MANUAL DIFF NO %
[2016-11-13 11:44] LABS: BUN (BLOOD UREA NITROGEN) 21 MG/DL (6-23); CALCIUM, SERUM 8.3 MG/DL (8.5-10.4); CHLORIDE, SERUM 107 MMOL/L (96-112); CO2 (CARBON DIOXIDE) 29 MMOL/L (24-34); CREATININE 0.39 MG/DL (0.55-1.02); GFR AFRICAN AMERICAN 139 ML/MIN (>=60); GFR NON AFRICAN AMERICAN 120 ML/MIN (>=60); GLUCOSE, SERUM 114 MG/DL (60-99); PHOSPHORUS, SERUM 2.4 MG/DL (2.5-4.5); POTASSIUM, SERUM 3.8 MMOL/L (3.5-5.3); SODIUM, SERUM 139 MMOL/L (135-148)
[2016-11-14 12:31] LABS: BASOPHILS 0.5 %; BASOPHILS ABSOLUTE 0.03 10/3/uL (0.0-0.16); EOSINOPHILS 4.4 %; EOSINOPHILS ABSOLUTE 0.26 10/3/uL (0.0-0.53); HEMOGLOBIN 11.2 g/dL (12.0-16.0); IMMATURE GRANULOCYTES ABSOLUTE 0.12 10/3/uL (0.0-0.11); LYMPHOCYTES 7.6 %; LYMPHOCYTES ABSOLUTE 0.45 10/3/uL (0.67-4.30); MEAN CORPUS HGB CONC 33.9 g/dL (32.0-36.0); MEAN CORPUSCULAR HEMOGLOB 28.4 pg (26.0-34.0); MEAN CORPUSCULAR VOLUME 83.8 fL (80-100); MEAN PLATELET VOLUME 10.5 fL (9.2-13.0); MONOCYTES 11.7 %; MONOCYTES ABSOLUTE 0.69 10/3/uL (0.21-1.20); NEUTROPHILS 73.8 %; NEUTROPHILS ABSOLUTE 4.35 10/3/uL (2.02-8.40); PLATELET COUNT 244 10/3/uL (150-400); RBC DISTRIBUTION WIDTH 13.5 % (12.0-16.0); RED CELL COUNT 3.94 10/6/uL (4.0-5.6); WHITE BLOOD CELLS 5.9 10/3/uL (4.5-10.5)
[2016-11-14 12:32] LABS: MANUAL DIFF NO %
[2016-11-14 12:44] LABS: BUN (BLOOD UREA NITROGEN) 21 MG/DL (6-23); CALCIUM, SERUM 8.3 MG/DL (8.5-10.4); CHLORIDE, SERUM 107 MMOL/L (96-112); CO2 (CARBON DIOXIDE) 27 MMOL/L (24-34); CREATININE 0.41 MG/DL (0.55-1.02); GFR AFRICAN AMERICAN 137 ML/MIN (>=60); GFR NON AFRICAN AMERICAN 118 ML/MIN (>=60); GLUCOSE, SERUM 106 MG/DL (60-99); PHOSPHORUS, SERUM 2.8 MG/DL (2.5-4.5); SODIUM, SERUM 139 MMOL/L (135-148)
[2016-11-15 11:31] LABS: CALCIUM, SERUM 8.1 MG/DL (8.5-10.4); CHLORIDE, SERUM 107 MMOL/L (96-112); CO2 (CARBON DIOXIDE) 26 MMOL/L (24-34); CREATININE 0.37 MG/DL (0.55-1.02); GFR AFRICAN AMERICAN 141 ML/MIN (>=60); GFR NON AFRICAN AMERICAN 122 ML/MIN (>=60); GLUCOSE, SERUM 111 MG/DL (60-99); PHOSPHORUS, SERUM 2.6 MG/DL (2.5-4.5); SODIUM, SERUM 139 MMOL/L (135-148)
[2016-11-15 11:32] LABS: BUN (BLOOD UREA NITROGEN) 17 MG/DL (6-23)
[2016-11-16 12:17] LABS: BUN (BLOOD UREA NITROGEN) 16 MG/DL (6-23); CALCIUM, SERUM 8.2 MG/DL (8.5-10.4); CHLORIDE, SERUM 108 MMOL/L (96-112); CO2 (CARBON DIOXIDE) 27 MMOL/L (24-34); CREATININE 0.31 MG/DL (0.55-1.02); GFR AFRICAN AMERICAN 150 ML/MIN (>=60); GFR NON AFRICAN AMERICAN 129 ML/MIN (>=60); GLUCOSE, SERUM 110 MG/DL (60-99); PHOSPHORUS, SERUM 2.5 MG/DL (2.5-4.5); POTASSIUM, SERUM 3.8 MMOL/L (3.5-5.3); SODIUM, SERUM 139 MMOL/L (135-148)
[2016-11-17 11:36] LABS: BUN (BLOOD UREA NITROGEN) 18 MG/DL (6-23); CALCIUM, SERUM 8.1 MG/DL (8.5-10.4); CHLORIDE, SERUM 107 MMOL/L (96-112); CO2 (CARBON DIOXIDE) 29 MMOL/L (24-34); CREATININE 0.34 MG/DL (0.55-1.02); GFR AFRICAN AMERICAN 145 ML/MIN (>=60); GFR NON AFRICAN AMERICAN 125 ML/MIN (>=60); GLUCOSE, SERUM 119 MG/DL (60-99); PHOSPHORUS, SERUM 2.9 MG/DL (2.5-4.5); POTASSIUM, SERUM 4.1 MMOL/L (3.5-5.3); SODIUM, SERUM 139 MMOL/L (135-148)
[2016-11-18 11:49] LABS: BASOPHILS 0.5 %; BASOPHILS ABSOLUTE 0.03 10/3/uL (0.0-0.16); EOSINOPHILS 4.4 %; EOSINOPHILS ABSOLUTE 0.25 10/3/uL (0.0-0.53); IMMATURE GRANULOCYTES ABSOLUTE 0.11 10/3/uL (0.0-0.11); LYMPHOCYTES 10.1 %; LYMPHOCYTES ABSOLUTE 0.57 10/3/uL (0.67-4.30); MEAN CORPUS HGB CONC 32.8 g/dL (32.0-36.0); MEAN CORPUSCULAR HEMOGLOB 28.2 pg (26.0-34.0); MEAN CORPUSCULAR VOLUME 85.9 fL (80-100); MONOCYTES 5.7 %; MONOCYTES ABSOLUTE 0.32 10/3/uL (0.21-1.20); NEUTROPHILS 77.3 %; NEUTROPHILS ABSOLUTE 4.36 10/3/uL (2.02-8.40); PLATELET COUNT 302 10/3/uL (150-400); RBC DISTRIBUTION WIDTH 14.5 % (12.0-16.0); RED CELL COUNT 3.19 10/6/uL (4.0-5.6); WHITE BLOOD CELLS 5.6 10/3/uL (4.5-10.5)
[2016-11-18 11:50] LABS: HEMATOCRIT 27.4 % (36.0-48.0); MANUAL DIFF NO %
[2016-11-18 12:23] LABS: A/G RATIO 0.7 (0.7-1.9); ALKALINE PHOSPHATASE 79 U/L (45-117); BUN (BLOOD UREA NITROGEN) 18 MG/DL (6-23); CALCIUM, SERUM 8.6 MG/DL (8.5-10.4); CHLORIDE, SERUM 108 MMOL/L (96-112); CO2 (CARBON DIOXIDE) 27 MMOL/L (24-34); CREATININE 0.31 MG/DL (0.55-1.02); GFR AFRICAN AMERICAN 150 ML/MIN (>=60); GFR NON AFRICAN AMERICAN 129 ML/MIN (>=60); GLOBULIN 3.3 G/DL (2.5-4.1); GLUCOSE, SERUM 108 MG/DL (60-99); PREALBUMIN 12.6 MG/DL (17.0-43.0); SGOT(AST) 21 U/L (5-40); SGPT(ALT) 35 U/L (5-65); SODIUM, SERUM 138 MMOL/L (135-148); TOTAL BILIRUBIN 0.4 MG/DL (0-1.2); TOTAL PROTEIN 5.5 G/DL (6.0-8.5); VANCOMYCIN TROUGH 17.6 MCG/ML (10.0-20.0)
[2016-11-18 12:26] LABS: ALBUMIN 2.2 G/DL (3.5-5.0)
[2016-11-19] MEDS ORDERED: LEVAQUIN750 MG PO (10:57)
[2016-11-19] MEDS ORDERED: QUESLITE PO (10:57)
[2016-11-19] MEDS ORDERED: AZO-STANDARD95 MG PO (10:58)
[2016-11-19] MEDS ORDERED: PERCOCET 7.5/321 TAB (10:59)
[2016-11-19 13:16] LABS: BUN (BLOOD UREA NITROGEN) 17 MG/DL (6-23); CALCIUM, SERUM 8.3 MG/DL (8.5-10.4); CHLORIDE, SERUM 106 MMOL/L (96-112); CO2 (CARBON DIOXIDE) 28 MMOL/L (24-34); CREATININE 0.35 MG/DL (0.55-1.02); GFR AFRICAN AMERICAN 144 ML/MIN (>=60); GFR NON AFRICAN AMERICAN 124 ML/MIN (>=60); GLUCOSE, SERUM 119 MG/DL (60-99); POTASSIUM, SERUM 3.9 MMOL/L (3.5-5.3); SODIUM, SERUM 140 MMOL/L (135-148)
[2016-11-21 18:48] LABS: ZINC 61 ug/dL (60-120)
[2016-11-23 07:07] LABS: VITAMIN C, PLASMA 45 umol/L (23-114)
[2016-11-23 14:33] LABS: VITAMIN B1, WHOLE BLOOD 161 nmol/L (70-180)
[2016-11-24 13:51] LABS: VITAMIN B2 (RIBOFLAVIN) 17 nmol/L (5-50)
== END 2016-11-19 15:05 | disposition home or self-care (01) | DRG 330 ==
LOC: 4EA 20:01
PROVIDERS: Internal Medicine Gastroenterology; Obstetrics & Gynecology Gynecology; Surgery
PROC: 3E0336Z Introduction of Nutritional Substance into Peripheral Vein, Percutaneous Approach (ICD-10-PCS; 2016-11-07)
PROC: 0DB80ZZ Excision of Small Intestine, Open Approach (ICD-10-PCS; 2016-11-08)
PROC: 0DN80ZZ Release Small Intestine, Open Approach (ICD-10-PCS; principal; 2016-11-08 14:45)
DX: K52.0 Gastroenteritis and colitis due to radiation (principal); K56.60 Unspecified intestinal obstruction
CPT/HCPCS: 74000; 74250; 80048; 80053; 80202; 81001; 82180; 82306; 82330; 82607; 82962; 83735; 84100; 84134; 84252; 84425; 84478; 84630; 85025; 85610; 85730; 87045; 87046; 87046-59; 87077; 87086; 87186; 87328; 87329; 87493; 87493-59; 87899; 87899-59; 88307; 89055; 89125; 93005; 97161-GP; A9270-GY; C9113; J0330; J0690; J1170; J1885; J2250; J2270; J2370; J2405; J2550; J2710; J2795; J3010; J3370; P9045

== ENCOUNTER 2016-12-02 09:32 | Inpatient (IN) | payer BC ==
--- NOTE | ~2016-12-02 | CN ---
Consultation Report [facility] [address] [place]. [address] NAME: MARIA G NATION : 61 STATUS : ADM IN PAT#: [id number] AGE: 51 ADM/REG DATE : 12/02/16 MR#: [id number] REPORT SERV DATE: 12/04/16 DICTATED BY: TEX HOGUE DATE: 12/04/16 REPORT STATUS : Draft TRANSCRIBED BY: MODL DATE: 12/04/16 INPATIENT CONSULT NOTE DATE OF CONSULTATION: 12/04/2016 REASON FOR CONSULTATION: Nausea, vomiting, and diarrhea. HISTORY OF PRESENT ILLNESS: Mrs. Nation is a very pleasant 51-year-old female with past medical history significant for history of recurrent endometrial cancer, status post chemotherapy and XRT as well as recent small bowel resection for a small bowel obstruction and findings of severe radiation enteritis, who presents again shortly after her most recent admission approximately one week after most recent admission for recurrent diarrhea along with episodes of nausea and vomiting. The patient states that she has been having increasing frequency of loose watery bowel movements over the last five days prior to admission. No blood in her stools. The patient does have abdominal discomfort primarily in her lower quadrants - crampy and "sore in nature". The patient had Clostridium difficile assay during her last admission that was negative and had a repeat earlier today which again was negative. The patient also admits episodes of intermittent nauseousness and vomiting. The patient states that sometimes this is provoked with eating, but does not always occur with having meal. The patient has been limiting herself to a low-residue diet given her recent history of enteritis and a bowel obstruction. No blood in her vomitus. No black tarry stools. The patient had undergone an upper endoscopy with small bowel enteroscopy by her primary oliving machine operator, Dr. Velez less than one month ago prior to her bowel resection, where she was noted to have a large amount of fluid filling her stomach and small intestine corresponding to the small-bowel obstruction she was suffering from. The patient is now admitted with recurrent symptoms, however she has no abdominal distention and her present time seems to be comfortable with no symptoms of nauseousness, still with mild abdominal discomfort, but otherwise doing well. REVIEW OF SYSTEMS: All systems reviewed and were negative. The patient admits to being somewhat anxious and questions whether or not this may be contributing to her symptoms. PAST MEDICAL HISTORY: 1. History of endometrial adenocarcinoma, status post pelvic and periaortic lymph node dissection and hysterectomy. The patient also with recurrence in her endometrial and perirectal space, status post radiation therapy with cytoreductive surgery and pelvic radiation. 2. History of radiation enteritis. 3. History of small-bowel obstruction, status post small bowel resection on 11/08/2016. 4. History of urinary tract infection. FAMILY HISTORY: The patient has no family history of GI related malignancy. Consultation Report [place] [address] [place] [address] NAME: MARIA G NATION : 61 STATUS : ADM IN [facility]#: [id number] AGE: 51 ADM/REG DATE : 12/02/16 MR#: [id number] REPORT SERV DATE: 12/04/16 DICTATED BY: TEX HOGUE DATE: 12/04/16 REPORT STATUS : Draft TRANSCRIBED BY: MAGDALENE DATE: 12/04/16 SOCIAL HISTORY: The patient denies alcohol or illicit substance abuse. ALLERGIES: THE PATIENT HAS ALLERGIES TO: 1. SULFA. 2. DERMABOND. 3. AZITHROMYCIN. 4. CEFADROXIL. OUTPATIENT MEDICATIONS: Include: 1. TPN. 2. Probiotic. 3. Systane eyedrops. 4. Phenergan. 5. Pepcid. 6. Zofran. 7. Questran. 8. Percocet. 9. Cranberry capsules. PHYSICAL EXAMINATION: VITAL SIGNS: Most recent vital signs include a temperature of 98.2 with a T-max of 98.8, pulse rate is 95, blood pressure is 100/57, saturating 98% on room air. GENERAL INSPECTION: Reveals a middle-aged female, lying in bed, in no apparent distress. HEENT: Head is normocephalic, atraumatic with normal inspection of the oral mucosa with moist mucous membranes. Sclerae are nonicteric. Pupils are equal and round. NECK: Supple without lymphadenopathy. HEART: Rate is regular with normal S1, S2. LUNGS: Sounds clear to auscultation bilaterally. ABDOMEN: Soft and nondistended, but tender to palpation in the lower quadrants. This is rated as ppnx-ev-yjimotkq tenderness. No rebound was present. No masses were palpated. EXTREMITIES: No cyanosis, clubbing, or edema. SKIN: No jaundice or rash. NEURO: No gross motor deficits. She is alert and oriented. Mood and affect are appropriate. Judgment appears to be intact. LABORATORY DATA: Most recent laboratory results demonstrate C diff toxin assay that was negative. Basic metabolic panel was unremarkable. Urinalysis showed no evidence of infection. CBC showed a low white count of 3.1, hemoglobin of 10.6, and a platelet count of 361,000. LFTs were unremarkable. IMAGING: The patient has a KUB that was reviewed and showed a nonobstructive gas pattern. No other pertinent imaging to review since her last admission. Consultation Report [place] [id number] [place]. [address] NAME: MARIA G NATION : 61 STATUS : ADM IN [facility]#: [id number] AGE: 51 ADM/REG DATE : 12/02/16 MR#: [id number] REPORT SERV DATE: 12/04/16 DICTATED BY: TEX HOGUE DATE: 12/04/16 REPORT STATUS : Draft TRANSCRIBED BY: MAGDALENE DATE: 12/04/16 ASSESSMENT AND PLAN: Mrs. Nation is a very pleasant 51-year-old female with past history significant for recurrent endometrial cancer, status post cytoreductive surgery and radiation therapy that was complicated by small bowel obstruction, who is now approximately three weeks status post small bowel resection, who is having problems with intermittent nausea and vomiting and worsening diarrhea over the last several days. The patient has already been found to be C difficile negative. The patient's symptoms are very likely related to her enteritis and recent surgery. Would perform a CT enterography to assess the small bowel and assure that there are no luminal narrowings or other significant abnormalities that can be seen. We would also send off the patient's stool for more extensive sampling including a stool culture and fecal leukocytes as well as an ova and parasite exam. For now, would continue to treat the patient symptomatically. If the patient continues to have no blood in her stool and has no suggestion of fecal leukocytes, can give her Imodium or Lomotil for symptomatic relief. In terms of her nausea and vomiting, we would continue to keep her on a low-residue diet, but also encouraged her to have more of a liquid diet. If no abnormalities are seen on CT enterography, we would consider performing a gastric emptying study to further define any underlying motility problems that may be contributing to her symptoms. If positive, the patient would likely benefit from the use of Reglan several times per day. Thank you very much for this interesting consult. We will continue to follow along with you. Please call with any questions or concerns you might have. CAROL/MAGDALENE Tex Hogue MD / [id number] CC: Josh Santos III,
--- NOTE | ~2016-12-02 | HP ---
History And Physical [place] [address] [facility] [place] [place]. [address] NAME: MARIA G NATION : 61 STATUS : ADM IN [facility]#: [id number] AGE: 51 ADM/REG DATE : 12/02/16 MR#: [id number] REPORT SERV DATE: 12/03/16 DICTATED BY: ANY COOPER III DATE: 12/03/16 REPORT STATUS : Draft TRANSCRIBED BY: MODL DATE: 12/03/16 DATE OF ADMISSION: 12/02/2016 HISTORY OF PRESENT ILLNESS: This 51-year-old female was admitted to the hospital emergently with nausea, vomiting, and diarrhea. The complains of five-day history of intermittent nausea and vomiting. These symptoms began about five days ago. It became progressively worse. This was associated with profuse watery diarrhea. It was felt that emergent admission to the hospital was indicated. The patient recently underwent a distal small-bowel obstruction for severe radiation enteritis. Following this, she had a prolonged small-bowel obstruction secondary to severe radiation enteritis. PAST MEDICAL HISTORY: 1. History of endometrial adenocarcinoma. She is status post pelvic and periaortic lymph node dissection followed by radiation therapy due to recurrence. She developed recurrence in her endometrial and perirectal space. This required cytoreductive surgery and pelvic radiation per Dr. Maxi Catalan. Following that she developed persistent nausea and vomiting, which was related to radiation enteritis. This required small-bowel resection performed on 11/08/2016. The patient's postoperative course was slow and uneventful. Due to her profound malnutrition and continued diarrhea and previous weight loss, it was felt that continued TPN was indicated, and the patient has been on this at home during this time. 2. History of recent urinary tract infection. MEDICATIONS: As per medication list. FAMILY HISTORY: Unremarkable. SOCIAL HISTORY: The patient is and lives locally. PHYSICAL EXAMINATION: GENERAL:This is a female, in no acute distress. Her mucous membranes are dry. Consistent dehydration. VITAL SIGNS: Blood pressure 92/50, temp 97.6, and pulse 93. HEENT: Otherwise unremarkable. Cranial nerves 2 through 12 are normal. LUNGS: Clear. CARDIAC: Normal. ABDOMEN: Soft and nontender with a well-healed midline incision. The patient has marked muscle mass wasting consistent with her previous malnutrition. LABORATORY DATA: Electrolytes are unremarkable. White blood cell count of 3.1. ASSESSMENT: 1. 51-year-old female with persistent nausea, vomiting, and diarrhea with dehydration. History And Physical [address] [address] NAME: MARIA G NATION : 61 STATUS : ADM IN PAT#: [id number] AGE: 51 ADM/REG DATE : 12/02/16 MR#: [id number] REPORT SERV DATE: 12/03/16 DICTATED BY: ANY COOPER III DATE: 12/03/16 REPORT STATUS : Draft TRANSCRIBED BY: MODShannan DATE: 12/03/16 2. Status post radiation enteritis related to endometrial adenocarcinoma. 3. Status post hysterectomy and cytoreductive pelvic surgery for recurrent endometrial cancer. PLAN: The patient will be admitted and started on parenteral fluids and bowel rest. She should be continued on her current TPN. It should be noted the KUB on admission shows no specific abnormality. This plan has been explained to the patient. At this time, there is no indication of an immediate need for surgery. The patient's questions have been answered. She understands and agrees to this as planned. ISHA/MAGDALENE Any Cooper III, M.D. / [id number] CC: Josh Santos III, DO
--- NOTE | ~2016-12-02 | DS ---
Discharge Summary [facility] [address] [place]. [address] NAME: MARIA G NATION : 61 STATUS : DIS IN PAT#: [id number] AGE: 51 ADM/REG DATE : 12/02/16 MR#: [id number] REPORT SERV DATE: 12/18/16 DICTATED BY: ANY COOPER III DATE: 12/17/16 REPORT STATUS : Draft TRANSCRIBED BY: MAGDALENE DATE: 12/17/16 Data Collection from hospitalization DISCHARGE DIAGNOSES: 1. Radiation enteritis-chronic. 2. Partial small bowel obstruction-improving. 3. Malnutrition. 4. History of endometrial adenocarcinoma. CONSULTATIONS: Dr. Tex Coon. PROCEDURES PERFORMED: CT scan of the abdomen and pelvis with contrast, 12/04/2016. DISCHARGE MEDICATIONS: Questran Light one packet twice a day, Pepcid 10 mg twice a day, Zofran 8 mg every eight hours as needed, Percocet 7.5/325 one tablet every eight hours as needed, Systane one drop twice a day as needed, Phenergan 25 mg per rectum every eight hours as needed, TPN infusion as instructed, probiotic one capsule every morning, cranberry plus D mannose one capsule twice a day. CONDITION AT DISCHARGE: Stable. DISPOSITION: The patient was discharged home to be followed by home health care on a low- residue diet with activities as instructed. She would follow up with me as previously scheduled. HOSPITAL COURSE: This is a 51-year-old female who presented to the hospital emergently with nausea, vomiting, and diarrhea. She had complained of a five-day history of intermittent nausea and vomiting. The symptoms began about five days prior to admission and became progressively worse. This was associated with profuse watery diarrhea. It was felt that she would need emergent admission. She recently had a distal small bowel obstruction for severe radiation enteritis. She had a prolonged small bowel obstruction secondary to severe radiation enteritis. She was admitted to the hospital at this time for further evaluation and treatment. Upon admission, white blood cell count was 3.1. She was started on parenteral fluids and bowel rest. It was felt that she should be continued on her current TPN. KUB showed no specific abnormality. There was no indication for an immediate need for surgery at this time. Her electrolytes were unremarkable. The following day, she felt like her diarrhea has worsened. Stool C and S was negative. Questran was resumed. She was seen in consultation by Dr. Tex Coon regarding nausea, vomiting, and diarrhea. She had had no black tarry stools. The patient had limited herself to a low-residue diet given her recent history of enteritis and bowel obstruction. There was no blood in her vomitus. She had undergone an upper endoscopy with small bowel enteroscopy by Dr. Velez less than a month ago prior to her bowel resection where she was found to have a large amount of fluid filling in her stomach and small intestine corresponding to the small bowel obstruction she was suffering from. She had no abdominal distention at the present time. She appeared to be comfortable. She still had some mild abdominal discomfort, but otherwise was doing well. KUB was reviewed and showed nonobstructive gas pattern. She was now approximately three Discharge Summary [address] [address] NAME: MARIA G NATION : 61 STATUS : DIS IN PAT#: [id number] AGE: 51 ADM/REG DATE : 12/02/16 MR#: [id number] REPORT SERV DATE: 12/18/16 DICTATED BY: ANY COOPER III DATE: 12/17/16 REPORT STATUS : Draft TRANSCRIBED BY: MODL DATE: 12/17/16 weeks status post small bowel resection. She was already found to be C. difficile negative. It was felt that her symptoms were very likely related to her enteritis and recent surgery. CT enterography was requested to assess small bowel and assure there were no luminal narrowings or other significant abnormality seen. The patient's stool could also be sent for more extensive sampling including a stool culture and fecal leukocytes as well as ova and parasites. For now, we would continue to treat the patient symptomatically. If the patient continued to have no blood in her stool and had no suggestion of fecal leukocytes, we could give her Imodium or Lomotil for symptomatic relief. She was going to be kept on a low-residue diet, but she was encouraged to have more of a liquid diet. If no abnormalities were seen on CT enterography, we could consider performing gastric emptying study to further define any underlying motility problems that may be contributing to her symptoms. If positive, the patient would likely benefit from the use of Reglan several times per day. CT scan of the abdomen and pelvis with contrast was performed. On 12/05/2016, she said she was feeling much better. She had less nausea and less diarrhea. She was wanting to go home. Full liquids were started. Repeat KUB was going to be obtained. IV fluids were continued. She remained on TPN. We were going to advance her diet slowly. The following day, she was feeling better. She was tolerating full liquids. She had no nausea or vomiting. She had no further diarrhea. She had no abdominal pain. Her diet was advanced. Discharge planning was performed. She is being given TPN at bedtime. On 12/07/2016, she felt much better and wanted to go home. She still had some nausea and diarrhea, but no vomiting. She was passing loose stools. Discharge instructions were given. Due to her improved and stable condition, she was discharged home with the above-stated instructions. Information collected by: Es Proctor I submit the above information as my discharge summary. TG/MODL Ayn Cooper III, M.D. / [id number] CC: Josh Santos III, DO William M. Cooney, MD
[~2016-12-02 09:32] MED LIST changes: +AZO-STANDARD95 MG PO; +CALC PO; +LEVAQUIN750 MG PO; +MAG PO; +MULTIVIT/MIN PO; +PERCOCET 7.5/321 TAB; +QUESLITE PO; +SENTAB PO; +VIT PO; +VITC500 PO; +[UNRECOGNIZED DRUG - OTHER] PO
[2016-12-02] MEDS ORDERED: LEVAQUIN PO (18:11)
[2016-12-02] MEDS ORDERED: PR25R PR (18:12)
[2016-12-02] MEDS ORDERED: ZOFRAN8 PO (18:13)
[2016-12-02] MEDS ORDERED: QUESLITE PO (18:13)
[2016-12-02] MEDS ORDERED: PEP20 PO (18:13)
[2016-12-02] MEDS ORDERED: PERCOCET 7.5/321 TAB PO (18:14)
[2016-12-02] MEDS ORDERED: TPN INFUSION (18:15)
[2016-12-02] MEDS ORDERED: PROBIOTIC PO (18:15)
[2016-12-02] MEDS ORDERED: SYSTANE OPH (18:16)
[2016-12-02] MEDS ORDERED: D MANNOSE PO (18:17)
[2016-12-02] MEDS ORDERED: CRANBERRY PO (18:17)
[2016-12-02 19:32] LABS: BASOPHILS 0.3 %; BASOPHILS ABSOLUTE 0.01 10/3/uL (0.0-0.16); EOSINOPHILS 3.2 %; HEMOGLOBIN 10.6 g/dL (12.0-16.0); IMMATURE GRANULOCYTES 0.3 %; IMMATURE GRANULOCYTES ABSOLUTE 0.01 10/3/uL (0.0-0.11); LYMPHOCYTES 17.5 %; LYMPHOCYTES ABSOLUTE 0.55 10/3/uL (0.67-4.30); MEAN CORPUS HGB CONC 32.3 g/dL (32.0-36.0); MEAN CORPUSCULAR HEMOGLOB 27.8 pg (26.0-34.0); MEAN PLATELET VOLUME 10.3 fL (9.2-13.0); MONOCYTES 13.7 %; MONOCYTES ABSOLUTE 0.43 10/3/uL (0.21-1.20); NEUTROPHILS ABSOLUTE 2.04 10/3/uL (2.02-8.40); PLATELET COUNT 361 10/3/uL (150-400); RBC DISTRIBUTION WIDTH 15.6 % (12.0-16.0); RED CELL COUNT 3.81 10/6/uL (4.0-5.6); WHITE BLOOD CELLS 3.1 10/3/uL (4.5-10.5)
[2016-12-02 19:45] LABS: HEMATOCRIT 32.8 % (36.0-48.0); MANUAL DIFF NO %; MEAN CORPUSCULAR VOLUME 86.1 fL (80-100)
[2016-12-02 19:47] LABS: A/G RATIO 0.9 (0.7-1.9); ALBUMIN 3.1 G/DL (3.5-5.0); ALKALINE PHOSPHATASE 100 U/L (45-117); BUN (BLOOD UREA NITROGEN) 15 MG/DL (6-23); CALCIUM, SERUM 8.6 MG/DL (8.5-10.4); CHLORIDE, SERUM 105 MMOL/L (96-112); CO2 (CARBON DIOXIDE) 30 MMOL/L (24-34); CREATININE 0.58 MG/DL (0.55-1.02); GFR AFRICAN AMERICAN 122 ML/MIN (>=60); GFR NON AFRICAN AMERICAN 105 ML/MIN (>=60); GLOBULIN 3.5 G/DL (2.5-4.1); GLUCOSE, SERUM 104 MG/DL (60-99); POTASSIUM, SERUM 3.5 MMOL/L (3.5-5.3); SGOT(AST) 17 U/L (5-40); SGPT(ALT) 39 U/L (5-65); SODIUM, SERUM 138 MMOL/L (135-148); TOTAL BILIRUBIN 0.3 MG/DL (0-1.2); TOTAL PROTEIN 6.6 G/DL (6.0-8.5)
[2016-12-03 14:16] LABS: WBC (NOT ORDERED) (RFLEX) 0 (0-5)
[2016-12-03 14:34] LABS: ASCORBIC ACID (UR NOT ORDER) NEG (NEG); BILIRUBIN, URINE NEGATIVE (NEG); KETONE, URINE NEGATIVE (NEG); LEUKOCYTE ESTERASE(NOT OR NEG (NEG)
[2016-12-03 15:27] LABS: BUN (BLOOD UREA NITROGEN) 17 MG/DL (6-23); CHLORIDE, SERUM 104 MMOL/L (96-112); CO2 (CARBON DIOXIDE) 28 MMOL/L (24-34); CREATININE 0.63 MG/DL (0.55-1.02); GFR AFRICAN AMERICAN 119 ML/MIN (>=60); GFR NON AFRICAN AMERICAN 102 ML/MIN (>=60); GLUCOSE, SERUM 103 MG/DL (60-99); PHOSPHORUS, SERUM 3.4 MG/DL (2.5-4.5); POTASSIUM, SERUM 3.8 MMOL/L (3.5-5.3); PREALBUMIN 24.5 MG/DL (17.0-43.0); SODIUM, SERUM 137 MMOL/L (135-148)
[2016-12-04 05:29] LABS: BUN (BLOOD UREA NITROGEN) 18 MG/DL (6-23); CALCIUM, SERUM 8.7 MG/DL (8.5-10.4); CHLORIDE, SERUM 106 MMOL/L (96-112); CO2 (CARBON DIOXIDE) 29 MMOL/L (24-34); CREATININE 0.51 MG/DL (0.55-1.02); GFR AFRICAN AMERICAN 127 ML/MIN (>=60); GFR NON AFRICAN AMERICAN 110 ML/MIN (>=60); GLUCOSE, SERUM 94 MG/DL (60-99); POTASSIUM, SERUM 4.1 MMOL/L (3.5-5.3); SODIUM, SERUM 139 MMOL/L (135-148)
[2016-12-04 17:42] LABS: ASCORBIC ACID (UR NOT ORDER) NEG (NEG); BILIRUBIN, URINE NEGATIVE (NEG); KETONE, URINE NEGATIVE (NEG); LEUKOCYTE ESTERASE(NOT OR NEG (NEG); WBC (NOT ORDERED) (RFLEX) < 1 (0-5)
[2016-12-05 05:45] LABS: BUN (BLOOD UREA NITROGEN) 14 MG/DL (6-23); CALCIUM, SERUM 8.5 MG/DL (8.5-10.4); CHLORIDE, SERUM 107 MMOL/L (96-112); CO2 (CARBON DIOXIDE) 28 MMOL/L (24-34); CREATININE 0.45 MG/DL (0.55-1.02); GFR AFRICAN AMERICAN 133 ML/MIN (>=60); GFR NON AFRICAN AMERICAN 114 ML/MIN (>=60); GLUCOSE, SERUM 101 MG/DL (60-99); PHOSPHORUS, SERUM 4.1 MG/DL (2.5-4.5); POTASSIUM, SERUM 4.2 MMOL/L (3.5-5.3); SODIUM, SERUM 141 MMOL/L (135-148)
[2016-12-06 06:32] LABS: BUN (BLOOD UREA NITROGEN) 15 MG/DL (6-23); CALCIUM, SERUM 8.6 MG/DL (8.5-10.4); CHLORIDE, SERUM 108 MMOL/L (96-112); CO2 (CARBON DIOXIDE) 29 MMOL/L (24-34); CREATININE 0.44 MG/DL (0.55-1.02); GFR AFRICAN AMERICAN 134 ML/MIN (>=60); GFR NON AFRICAN AMERICAN 115 ML/MIN (>=60); PHOSPHORUS, SERUM 3.3 MG/DL (2.5-4.5); POTASSIUM, SERUM 4.3 MMOL/L (3.5-5.3); SODIUM, SERUM 141 MMOL/L (135-148)
[2016-12-06 06:33] LABS: GLUCOSE, SERUM 75 MG/DL (60-99)
[2016-12-07 06:25] LABS: BUN (BLOOD UREA NITROGEN) 17 MG/DL (6-23); CALCIUM, SERUM 8.5 MG/DL (8.5-10.4); CHLORIDE, SERUM 107 MMOL/L (96-112); CO2 (CARBON DIOXIDE) 28 MMOL/L (24-34); CREATININE 0.52 MG/DL (0.55-1.02); GFR AFRICAN AMERICAN 126 ML/MIN (>=60); GFR NON AFRICAN AMERICAN 109 ML/MIN (>=60); GLUCOSE, SERUM 68 MG/DL (60-99); PHOSPHORUS, SERUM 3.5 MG/DL (2.5-4.5); POTASSIUM, SERUM 4.3 MMOL/L (3.5-5.3); SODIUM, SERUM 139 MMOL/L (135-148)
== END 2016-12-07 12:18 | disposition home or self-care (01) | DRG 389 ==
LOC: 5SO 09:32
PROVIDERS: Surgery
PROC: 3E0336Z Introduction of Nutritional Substance into Peripheral Vein, Percutaneous Approach (ICD-10-PCS; principal; 2016-12-02)
DX: K56.69 Other intestinal obstruction (principal); A04.7 Enterocolitis due to Clostridium difficile; E46 Unspecified protein-calorie malnutrition; Z90.49 Acquired absence of other specified parts of digestive tract; Z98.890 Other specified postprocedural states; Z85.89 Personal history of malignant neoplasm of other organs and systems; Z92.3 Personal history of irradiation; E86.0 Dehydration; Z90.710 Acquired absence of both cervix and uterus
CPT/HCPCS: 74000; 74020; 74177; 80048; 80053; 81001; 82330; 82962; 83735; 84100; 84134; 85025; 87045; 87046; 87046-59; 87328; 87329; 87493; 87493-59; 87899; 87899-59; 89055; A9270-GY; J2405; J2550; Q9967